=== PATIENT | female | born 1985 | race American Indian/Alaskan Native ===

== ENCOUNTER 2022-03-23 23:12 | Emergency (ER) | payer MEDICAID, OTHER ==
[2022-03-23 23:29] VITALS: BP 124/72
== END 2022-03-23 23:30 | disposition left against medical advice (07) ==
LOC: ED 23:12
DX: M25.571 Pain in right ankle and joints of right foot (principal); M79.89 Other specified soft tissue disorders; Z53.21 Procedure and treatment not carried out due to patient leaving prior to being seen by health care provider